=== PATIENT | female | born 1950 | race Caucasian/White ===

== ENCOUNTER 2019-11-01 08:10 | Emergency (ER) | payer BC, MEDICARE ==
--- OUTSIDE RECORDS SUMMARY | 2019-11-01 08:35 | XMS REPORT | Continuity of Care Document ---
:1950 External Reference #:[id number] Author Name Lucia Lizama MD (transmitted by agent of provider Adriel Stuart) Address [address] [place] [address] Care Team Providers Name Role Phone Jon Maza MD - Family Care Team Information Hr Shared Services Consultant [phone] Medicine Problems Description No Information Available Social History Type Date Description Comments Sex Unknown ETOH Use Denies alcohol use Tobacco Use Start: Unknown End: Patient is a former smoker quit 1981 Unknown Recreational Drug Use Denies Drug Use Smoking Status Reviewed: 10/09/19 Patient is a former smoker quit 1982 Exercise Type/Frequency Exercises regularly Allergies, Adverse Reactions, Alerts Active Allergies Reaction Severity Comments Date NKDA 08/18/2019 Seasonal 05/21/2019 Medications Active Medications SIG Qnty Indications Ordering Provider Date Sumatriptan Succinate 1 tab by mouth as Unknown directed 100mg Tablets Montelukast Sodium 1 by mouth every Unknown 10mg day Tablets Fluoxetine HCL 1 cap by mouth Unknown 20mg every day Capsules Vitamin C 1 tab by mouth Unknown 500mg Capsules daily Progesterone on wrist once a Unknown 50mg/ml Oil night Vitamin D 1 by mouth every Unknown 50mcg (1999 Ut) day (500mg) Tablets Zinc 20 mg daily Unknown Immunizations Description No Information Available Vital Signs Date Vital Result Comment 10/09/2019 2:25pm Height 63 inches 5'3" Weight 122.00 lb Heart Rate 72 /min BP Systolic 106 mmHg BP Diastolic 70 mmHg Respiratory Rate 14 /min Body Temperature 97.6 F BMI (Body Mass Index) 21.6 kg/m2 08/18/2019 8:44am Height 63 inches 5'3" Weight 117.00 lb Heart Rate 72 /min BP Systolic Sitting 108 mmHg BP Diastolic Sitting 78 mmHg Respiratory Rate 12 /min Body Temperature 97.6 F BMI (Body Mass Index) 20.7 kg/m2 Results Test Acquired Date Facility Test Result H/L Range Note Leukemia/Lym 09/01/2019 [facility] Path Interpret (SEE NOTE) [address] [place] [address] [phone] CBC Auto 08/04/2019 [facility] White Blood 3.4 10^3/uL Low 3.5 -10.[address] [place] [address] [phone] Red Blood Count 4.45 10^6/uL Normal 3.70-4.87 Hemoglobin 13.5 g/dL Normal 12.0-16.0 Hematocrit 40 % Normal 35-47 Mean Corpuscular Volume 89 fL Normal 80-97 Mean Corpuscular Hemoglobin 30 pg Normal 27-31 Mean Corpuscular HGB Conc 34 g/dL Normal 31-36 Red Cell Distribution Width 14 % Normal 10-15 Platelet Count 199 10^3/uL Normal 150-450 Mean Platelet Volume 8.5 fL Normal 7.4-10.4 Abs Neutrophils 1.7 10^3/uL Normal 1.5-7.7 Abs Lymphocytes 1.2 10^3/uL Normal 1.0-4.8 Abs Monocytes 0.4 10^3/uL Normal 0-0.8 Abs Eosinophils 0.0 10^3/uL Normal 0-0.6 Abs Basophils 0.0 10^3/uL Normal 0-0.2 Abs Nucleated RBC 0.0 10^3/uL Granulocyte % 50.5 % Lymphocyte % 35.4 % Monocyte % 12.1 % Eosinophil % 1.2 % Basophil % 0.8 % Nucleated Red Blood Cells % 0.1 Comp Metabolic 08/04/2019 [facility] Sodium 137 mmol/L Normal 135-[address] [place] [address] [phone] Potassium 3.9 mmol/L Normal 3.5-5.0 Chloride 102 mmol/L Normal 101-111 Co2 Carbon Dioxide 30 mmol/L Normal 22-32 Anion Gap 5 mmol/L Normal 2-11 Glucose 78 mg/dL Normal 70-100 Blood Urea Nitrogen 12 mg/dL Normal 6-24 Creatinine 0.79 mg/dL Normal 0.51-0.95 BUN/Creatinine Ratio 15.2 Normal 8-20 Calcium 9.5 mg/dL Normal 8.6-10.3 Total Protein 6.6 g/dL Normal 6.4-8.9 Albumin 4.4 g/dL Normal 3.2-5.2 Globulin 2.2 g/dL Normal 2-4 Albumin/Globulin Ratio 2.0 Normal 1-3 Total Bilirubin 0.50 mg/dL Normal 0.2-1.0 Alkaline Phosphatase 59 U/L Normal 34-104 Alt 14 U/L Normal 7-52 Ast 22 U/L Normal 13-39 Egfr Non- 72.6 >60 Egfr 87.8 >60 2 Laboratory test finding 08/04/2019 [facility] LDH 145 U/L Normal 140-[address] [place] [address] [phone] Vitamin B12 > 1450 pg/mL High 180-914 3 Hepatitis B Surface Ag Nonreactive Nonreactive Hepatitis B Evaristo AB Titer Not Immune Abnormal Immune Hepatitis B Core AB Igm Nonreactive Nonreactive Hepatitis C Antibody 08/04/2019 [facility] HCV Index 0.03 s/c [address] [place] [address] [phone] Hepatitis C Antibody Negative Negative Laboratory 08/04/2019 [facility] Hepatitis B Core Negative Negative 4 test finding [address] [place] [address] [phone] Leukemia/Lymph 08/04/2019 [facility] Path (SEE NOTE) [address] Interpretation 2-[address] [place] [address] [facility] [phone] Path Interpret 9-15 [facility] TNP Path Interpret > 16 Marker TNP 1 FINAL DIAGNOSIS: Specimen Source: Axillary lymph node Flow cytometry immunophenotypic analysis: No immunophenotypic abnormality identified. Interpretative data: Lymphocytes: 98% of WBCs B-cells: 15% of lymphocytes with no evidence of light chain restriction or other immunophenotypic abnormality. T-cells/NK cells: No aberrant population detected. Markers tested: CD3, CD5, CD7, CD10, CD19, CD20, CD23, CD45, kappa surface light chains, lambda surface light chains, 7-AAD. Quality Assessment: Acceptable Viability: Acceptable Viable lymphocytes (7-AAD): 99% Specimen received within validated guidelines. A Medeiros-Giemsa stained slide prepared from the flow cytometry specimen was examined for quality purposes. Electronically signed by: Angel Contreras MD 09/04/19 1235 Technical component performed by: [place] [address] Retail Sales Representative: Allan Patel II, MD, PhD. 2 Because ethnic data is not always readily available, this report includes an eGFR for both -Americans and non- Americans. The National Kidney Disease Education Program (NKDEP) does not endorse the use of the MDRD equation for patients that are not between the ages of 18 and 70, are , have extremes of body size, muscle mass, or nutritional status, or are non- or non-. According to the National Kidney Foundation, irrespective of diagnosis, the stage of the disease is based on the level of kidney function: Stage Description GFR(mL/min/1.73 m(2)) 1 Kidney damage with normal or decreased GFR 90 2 Kidney damage with mild decrease in GFR 60-89 3 Moderate decrease in GFR 30-59 4 Severe decrease in GFR 15-29 5 Kidney failure <15 (or dialysis) 3 Normal Range 180 to 914 Indeterminate Range 145 to 180 Deficient Range <145 4 Test Performed by: [facility] [address] [place] [address] Infrastructure Administrator: Allan Patel M.D. Ph.D.; CLIA# [id number] 5 FINAL DIAGNOSIS: Specimen Source: Peripheral blood Flow cytometry immunophenotypic analysis: No immunophenotypic abnormality identified. Interpretative data: Blasts: 0% Lymphocytes: 48% of WBCs B-cells: 4% of lymphocytes with no evidence of light chain restriction or other immunophenotypic abnormality. T-cells/NK cells: No aberrant population detected. Markers tested: CD3, CD10, CD16, CD19, CD34, CD45, kappa surface light chains, lambda surface light chains, 7-AAD. Quality Assessment: Acceptable Viability: Acceptable Viable lymphocytes (7-AAD): 100% Specimen received within validated guidelines. A Medeiros-Giemsa stained slide prepared from the flow cytometry specimen was examined for quality purposes. Electronically signed by: Angel Contreras MD 08/06/19 0858 Technical component performed by: [place] [id number] Retail Sales Representative: Allan Patel II, MD, PhD. Procedures Date Code Description Status 05/28/2019 82941 EKG Tracing & Interpretation Completed Medical Devices Description No Information Available Encounters Type Date Location Provider Dx Diagnosis Office Visit 08/18/2019 [facility], K64.5 Perianal venous 8:[facility] thrombosis Office Visit 05/28/2019 [facility] Naman Moser R00.2 Palpitations 2:00[facility] Muniz M.D. R07.89 Other chest pain Assessments Date Code Description Provider 10/09/2019 Z12.31 Encounter for screening mammogram for Lucia Lizama MD malignant neoplasm of breast 08/18/2019 K64.5 Perianal venous thrombosis Ke Calix MD, FACS 05/28/2019 R00.2 Palpitations Naman Muniz M.D. 05/28/2019 R07.89 Chest wall pain Naman Muniz M.D. Plan of Treatment Future Appointment(s):11/03/2019 9:30 am - Ayo Blanco M.D. at [facility]10/09/2019 - Lucia Lizama MDZ12.31 Encounter for screening mammogram for malignant neoplasm of breastNew Xrays:[facility] Screening Mammogram, Scheduled: 10/09/19 Functional Status Description No Information Available Mental Status Description No Information Available Referrals Description No Information Available
[2019-11-01 09:34] LABS: ABS Lymphocytes 1.1 10^3/ul (1.0-4.8); ABS Monocytes 0.3 10^3/ul (0-0.8); ABS Neutrophils 2.8 10^3/ul (1.5-7.7); Eosinophil % 0.4 %; Hematocrit 40 % (35-47); Hemoglobin 14.1 g/dL (12.0-16.0); Lymphocyte % 24.9 %; Mean Corpuscular HGB Conc 35 g/dL (31-36); Mean Corpuscular Hemoglobin 31 pg (27-31); Mean Corpuscular Volume 89 fL (80-97); Platelet Count 208 10^3/uL (150-450); Red Blood Count 4.53 10^6 /uL (3.70-4.87); Red Cell Distribution Width 13 % (10-15); White Blood Count 4.3 10^3/uL (3.5-10.8)
[2019-11-01 09:54] LABS: ALT 17 U/L (7-52); AST 27 U/L (13-39); Albumin 4.6 g/dL (3.2-5.2); Albumin/Globulin Ratio 1.7 (1-3); Alkaline Phosphatase 67 U/L (34-104); Amylase 40 U/L (29-103); Anion Gap 6 mmol/L (2-11); BUN/Creatinine Ratio 9.9 (8-20); Blood Urea Nitrogen 7 mg/dL (6-24); C Reactive Protein < 1.00 mg/L (<8.01); CO2 Carbon Dioxide 29 mmol/L (22-32); Calcium 9.4 mg/dL (8.6-10.3); Chloride 98 mmol/L (101-111); EGFR African American 99.4 (>60); EGFR Non-African American 82.1 (>60); Globulin 2.7 g/dL (2-4); Glucose 107 mg/dL (70-100); Magnesium 2.1 mg/dL (1.9-2.7); Potassium 3.9 mmol/L (3.5-5.0); Sodium 133 mmol/L (135-145); Total Protein 7.3 g/dL (6.4-8.9)
--- NOTE | 2019-11-01 10:05 | ED ---
Abdominal Pain/Female - HPI Summary HPI Summary: Pt. is a 69 y.o female who presents to the ER for epigastric/LUQ pain x 2 days. Pt. notes significant hx of GI issues. Pt. recently moved to [place]. Pt. notes hx of CBD obstruction with numerous ERCPs, pancreatitis, chronic constipation and bowel disfunction. Pt. notes pain is intermittent and currently mild at this time. She notes sever nausea. She denies CP, SOB, fever, vomiting, blood in stool, urinary sxs. Sxs are moderate in severity. No current modifying factors. - History of Current Complaint Chief Complaint: EDAbdPain Stated Complaint: ABD PAIN PER PT Time Seen by Provider: 11/01/19 09:54 Hx Obtained From: Patient Pain Intensity: 9 Allergies/Adverse Reactions: Allergies Allergy/AdvReac Type Severity Reaction Status Date / Time No Known Allergies Allergy Verified 11/01/19 08:19 PMH/Surg Hx/FS Hx/Imm Hx Previously Healthy: Yes Infectious Disease History: No Infectious Disease History: Denies: Traveled Outside the [place] in Last 30 Days - Family History Known Family History: Positive: Non-Contributory - Social History Occupation: Retired Lives: With Family Alcohol Use: None Substance Use Type: Reports: None Smoking Status (MU): Former Smoker Review of Systems Constitutional: Negative Negative: Fever Cardiovascular: Negative Negative: Palpitations, Chest Pain Respiratory: Negative Negative: Shortness Of Breath, Cough Positive: Abdominal Pain, Nausea. Negative: Vomiting, Diarrhea Genitourinary: Negative Negative: dysuria Neurological: Negative All Other Systems Reviewed And Are Negative: Yes Physical Exam Triage Information Reviewed: Yes Vital Signs On Initial Exam: Initial Vitals Temp Pulse Resp BP Pulse Ox 98.3 F 64 15 143/85 99 11/01/19 08:18 11/01/19 08:18 11/01/19 08:18 11/01/19 08:18 11/01/19 08:18 Vital Signs Reviewed: Yes Appearance: Positive: Well-Appearing - Pt. sitting up in bed in NAD. Talkative. Skin: Positive: Warm, Dry Head/Face: Positive: Normal Head/Face Inspection Eyes: Positive: Normal, EOMI Neck: Positive: Supple Respiratory/Lung Sounds: Positive: Clear to Auscultation, Breath Sounds Present , Other - Pectus excavatum deformity noted. Cardiovascular: Positive: Normal, RRR Abdomen Description: Positive: Other: - Abd. is soft with epigastric and LUQ tenderness. No rebound or guarding. Musculoskeletal: Positive: Normal, Strength/ROM Intact Neurological: Positive: Normal, CN Intact II-III Psychiatric: Positive: Affect/Mood Appropriate Procedures - Sedation Patient Received Moderate/Deep Sedation with Procedure: No Diagnostics - Vital Signs Vital Signs Temp Pulse Resp BP Pulse Ox 11/01/19 08:18 98.3 F 64 15 143/85 99 - Laboratory Lab Results: Lab Results 11/01/19 11/01/19 Range/Units 09:19 09:19 WBC 4.3 (3.5-10.8) 10^3/uL RBC 4.53 (3.70-4.87) 10^6 /uL Hgb 14.1 (12.0-16.0) g/dL Hct 40 (35-47) % MCV 89 (80-97) fL MCH 31 (27-31) pg MCHC 35 (31-36) g/dL RDW 13 (10-15) % Plt Count 208 (150-450) 10^3/uL MPV 9.0 (7.4-10.4) fL Neut % (Auto) 66.1 % Lymph % (Auto) 24.9 % [place] % (Auto) 8.1 % Eos % (Auto) 0.4 % Baso % (Auto) 0.5 % Absolute Neuts (auto) 2.8 (1.5-7.7) 10^3/ul Absolute Lymphs (auto) 1.1 (1.0-4.8) 10^3/ul Absolute Monos (auto) 0.3 (0-0.8) 10^3/ul Absolute Eos (auto) 0.0 (0-0.6) 10^3/ul Absolute Basos (auto) 0.0 (0-0.2) 10^3/ul Absolute Nucleated RBC 0.0 10^3/ul Nucleated RBC % 0.0 Sodium 133 L (135-145) mmol/L Potassium 3.9 (3.5-5.0) mmol/L Chloride 98 L (101-111) mmol/L Carbon Dioxide 29 (22-32) mmol/L Anion Gap 6 (2-11) mmol/L BUN 7 (6-24) mg/dL Creatinine 0.71 (0.51-0.95) mg/dL Est GFR ( Amer) 99.4 (>60) Est GFR (Non-Af Amer) 82.1 (>60) BUN/Creatinine Ratio 9.9 (8-20) Glucose 107 H (70-100) mg/dL Calcium 9.4 (8.6-10.3) mg/dL Magnesium 2.1 (1.9-2.7) mg/dL Total Bilirubin 0.60 (0.2-1.0) mg/dL AST 27 (13-39) U/L ALT 17 (7-52) U/L Alkaline Phosphatase 67 (34-104) U/L Troponin I 0.00 (<0.03) ng/mL C-Reactive Protein < 1.00 (<8.01) mg/L Total Protein 7.3 (6.4-8.9) g/dL Albumin 4.6 (3.2-5.2) g/dL Globulin 2.7 (2-4) g/dL Albumin/Globulin Ratio 1.7 (1-3) Amylase 40 (29-103) U/L Lipase 14 (11.0-82.0) U/L Result Diagrams: 11/01/19 09:19 11/01/19 09:19 Lab Statement: Any lab studies that have been ordered have been reviewed, and results considered in the medical decision making process. Abdominal Pain Fem Course/Dx - Course Course Of Treatment: Pt. with epigastric pain/burning and nausea. Afebrile and well appearing. IV fliuds and zofran given. Pt. notes pain is minimal at this time. ECG done at 1014 shows a sinus rhythm of 61bpm, normal axis, no ST elevation or depression. Labs are unremarkable. Negative u/a for infection. CXR negative for acute findings per radiology. CT per radiology: IMPRESSION: 1. NO OBVIOUS ETIOLOGY FOR THE PATIENT'S SYMPTOMS. On re-exam pt. resting comfortably> Tolerating PO fliuds. Suspect pain may be secondary to gastritis. GI cocktail given and will rx omeprazole. Advised pt. to f.u closely with pcp this week and possible gi referral for scope if sxs persist. Will return to er if sxs change or worsen. Pt. understands and agrees with plan. Prior to dc, Pt. notes she is starting of migraine and states she take imitrex at home and is requesting dose before d/c. - Diagnoses Differential Diagnosis: Positive: Bowel Obstruction, Hepatitis, OK, Pancreatitis , Peptic Ulcer Disease, Urinary Tract Infection Provider Diagnoses: Epigastric pain, Gastritis Discharge ED - Sign-Out/Discharge Documenting (check all that apply): Patient Departure - Discharge Plan Condition: Improved Disposition: HOME Prescriptions: Omeprazole 40 mg PO DAILY #30 capsule. Ondansetron TAB* [Zofran 4 MG Tab*] 4 mg PO Q6H PRN #12 tab PRN Reason: Nausea Patient Education Materials: Gastritis (ED), Epigastric Pain (ED) Referrals: Jon Maza MD [Primary Care Provider] - Camden Gabriel MD [Medical Doctor] - Additional Instructions: Call PCP Sunday for close follow up and GI referral Omeprazole as directed Return to ER for increased pain, fever, vomiting or if concerned - Billing Disposition and Condition Condition: IMPROVED Disposition: Home
[2019-11-01] MEDS ORDERED: Ondansetron INJ* 2 MG/ML VIAL IV ONE (10:19)
[2019-11-01] MEDS ORDERED: NS 0.9% 1000 ML** 1,000 ML IV ONE (10:19)
[2019-11-01] MEDS ORDERED: Iohexol 300* (CONTRAST) 10 ML SDV IV ONE (10:28)
[2019-11-01 12:35] LABS: Urine Appearance Clear; Urine Bilirubin Negative (Negative); Urine Blood 2+ (Negative); Urine Color Colorless; Urine Glucose Negative (Negative); Urine Ketones Negative (Negative); Urine Nitrite Negative (Negative); Urine Protein Negative (Negative); Urine Specific Gravity 1.002 (1.010-1.030); Urine Urobilinogen Negative (Negative)
[2019-11-01] MEDS ORDERED: Al Hydrox/Mg Hydrox/Simet LIQ* 30 ML UDC PO ONE (12:37)
[2019-11-01] MEDS ORDERED: Lidocaine 2% VISCOUS* 15 ML UDC PO ONE (12:37)
[2019-11-01 12:45] LABS: Urine Bacteria 1+ (Absent); Urine Red Blood Cell 1+(3-5/hpf) (Absent); Urine White Blood Cell Absent (Absent)
[2019-11-01] MEDS ORDERED: SUMAtriptan TAB* 100 MG PO ONE (14:19)
[2019-11-01] MEDS ORDERED: Ondansetron ODT TAB* 4 MG PO ONE (14:19)
[2019-11-01 14:25] VITALS: BP 128/79
== END 2019-11-01 14:24 | disposition home or self-care (01) ==
LOC: ED 08:10
DX: K29.70 Gastritis, unspecified, without bleeding (principal); R10.13 Epigastric pain; R11.0 Nausea; I51.7 Cardiomegaly; K59.00 Constipation, unspecified; G43.909 Migraine, unspecified, not intractable, without status migrainosus; Z90.49 Acquired absence of other specified parts of digestive tract; Z87.891 Personal history of nicotine dependence
CPT/HCPCS: 36415; 74177; 80053; 81003; 81015; 82150; 83605; 83690; 83735; 84484; 85025; 86140; 87086; 93005; 96361; 96374; 99283; A9270-GY; J2405; Q9967